=== PATIENT | male | born 1965 | race Caucasian/White ===

== ENCOUNTER → 2020-07-27 11:43 | Outpatient (CLI) | payer MEDICAID, SELFPAY ==
[2020-07-27 14:28] LABS: Hemoglobin A1C 6.8 % (4.0-6.0)
[2020-07-27 14:43] LABS: Chloride 98 mmol/L (98-107); Sodium 138 mmol/L (136-145)
[2020-07-27 14:45] LABS: Alanine Aminotransferase 15 U/L (12-78); Albumin Level 4.2 g/dl (3.5-5.0); Albumin/Globulin Ratio 1.4 (1.1-1.8); Alkaline Phosphatase 112 U/L (38-126); Aspartate Amino Transferase 29 U/L (17-59); Blood Urea Nitrogen 17 mg/dl (9-20); Carbon Dioxide 33 mmol/L (22.0-30.0); Estimated Glomerular Filt Rate 69 ml/min (>60); GFR (African American) 84 ML/MIN (>60); Globulin 2.9 g/dL (1.3-3.2); Total Protein,Serum 7.1 g/dl (6.3-8.2)
[2020-07-27 14:45] LABS: Phosphorous 3.9 mg/dl (2.5-4.5); Uric Acid 6.7 mg/dl (3.5-8.5)
[2020-07-27 14:46] LABS: Calcium 9.5 mg/dl (8.4-10.2); Chol/HDL Ratio 2.9 (1-3.5); Cholesterol 117 mg/dl (140-200); Glucose 130 mg/dl (74-100); HDL Cholesterol 40 mg/dl (40-60); Triglycerides 94 mg/dl (30-150); VLDL Cholesterol 19 mg/dL (0-40)
[2020-07-27 14:58] LABS: Direct LDL Cholesterol 59.65 mg/dL (100-129)
[2020-07-27 15:04] LABS: 25-OH Vitamin D, Total 35.6 ng/mL (30-100)
[2020-07-27 15:20] LABS: Thyroid Stimulating Hormone 0.65 uIU/mL (0.465-4.68)
== END ==
PROVIDERS: Internal Medicine Nephrology; PCP Nurse Practitioner Family; Visit Provider Internal Medicine Endocrinology, Diabetes & Metabolism
DX: E07.9 Disorder of thyroid, unspecified (principal); N17.9 Acute kidney failure, unspecified; N18.30 Chronic kidney disease, stage 3 unspecified; I10 Essential (primary) hypertension; E11.65 Type 2 diabetes mellitus with hyperglycemia; E55.9 Vitamin D deficiency, unspecified; E78.5 Hyperlipidemia, unspecified
CPT/HCPCS: 36415; 80053; 80061; 82306; 83036; 83970; 84100; 84443; 84550

== ENCOUNTER → 2020-08-10 11:03 | Outpatient (CLI) | payer MEDICAID, SELFPAY ==
[2020-08-10 11:12] LABS: Microscopic, Urine URINE MICROSCOPIC (MICROSCOPIC)
[2020-08-10 13:44] LABS: Appearance,Urine CLEAR (Clear); Bilirubin,Urine Negative (Negative); Blood, Urine Negative (Negative); Color,Urine YELLOW (Yellow); Glucose,Urine (UA) Negative (Negative); Ketones,Urine Negative (Negative); Leukocyte Esterase,Urine Negative (Negative); Nitrate,Urine Negative (Negative); Protein,Urine Negative (Negative); Specific Gravity, Urine 1.025 (1.005-1.030); Urobilinogen,Urine 0.2 EU/dl (0.2)
[2020-08-10 14:26] LABS: Microalbumin < 6.000 mg/L (0-16.7)
[2020-08-10 14:34] LABS: Creatinine,Urine Random 171 mg/dL (Not Estab.)
[2020-08-10 15:08] LABS: Bacteria,Urine Trace /lpf; Fatty Casts,Urine Occasional #/lpf (0); Squamous Epithelial Cell,Urine Occasional #/hpf (0-5)
== END ==
PROVIDERS: Internal Medicine Nephrology; PCP Nurse Practitioner Family; Visit Provider Internal Medicine Endocrinology, Diabetes & Metabolism
DX: N17.9 Acute kidney failure, unspecified (principal); N18.30 Chronic kidney disease, stage 3 unspecified; E78.5 Hyperlipidemia, unspecified; E07.9 Disorder of thyroid, unspecified; E11.65 Type 2 diabetes mellitus with hyperglycemia; E55.9 Vitamin D deficiency, unspecified; I12.9 Hypertensive chronic kidney disease with stage 1 through stage 4 chronic kidney disease, or unspecified chronic kidney disease
CPT/HCPCS: 81001; 82043; 82570

== ENCOUNTER 2021-01-10 13:00 | Outpatient (RCR) | payer MEDICAID, SELFPAY | END 2021-01-26 13:39 | disposition home or self-care (01) | LOC: PT.CARL 13:00 | PROVIDERS: PCP Nurse Practitioner Family; Visit Provider Nurse Practitioner | DX: M25.552 Pain in left hip (principal) | CPT/HCPCS: 97110; 97140; 97163 ==

== ENCOUNTER 2021-02-28 15:00 | Outpatient (RCR) | payer MEDICAID, SELFPAY | END 2021-02-28 16:00 | disposition home or self-care (01) | LOC: PT.CARL 15:00 | PROVIDERS: PCP Nurse Practitioner Family; Visit Provider Nurse Practitioner | DX: M25.562 Pain in left knee (principal) | CPT/HCPCS: 97010; 97014; 97110; 97163; G0283 ==

== ENCOUNTER → 2021-04-13 11:00 | Outpatient (CLI) | payer MEDICAID, SELFPAY ==
[2021-04-13 11:04] LABS: Microscopic, Urine URINE MICROSCOPIC (MICROSCOPIC)
[2021-04-13 13:11] LABS: Basophils # 0.1 K/mm3 (0-0.2); Basophils % 1.1 % (0.1-2.0); Eosinophils # 0.8 K/mm3 (0.0-0.4); Eosinophils % 8.9 % (0.1-12.0); Hematocrit 44.1 % (42.0-52.0); Hemoglobin 14.4 g/dL (14.1-18.0); Lymphocytes # 2.2 K/mm3 (0.7-4.5); Lymphocytes % 24.2 % (10-50); Mean Corpuscular HGB Conc 32.7 g/dL (31.8-35.4); Mean Corpuscular Hemoglobin 29.1 pg (27.0-31.2); Mean Corpuscular Volume 88.8 fl (80-94); Mean Platelet Volume 8.8 fl (7.4-10.4); Monocytes # 0.4 K/mm3 (0.1-1.0); Monocytes % 4.3 % (1.7-9.3); Neutrophils # 5.6 K/mm3 (1.8-7.8); Neutrophils % 61.5 % (37.0-80.0); Platelet Count 336 K/mm3 (142-424); Red Blood Count 4.96 M/mm3 (4.60-6.20); Red Cell Distribution Width 13.8 % (11.5-17.5); White Blood Count 9.1 K/mm3 (4.8-10.8)
[2021-04-13 13:17] LABS: Alanine Aminotransferase 14 U/L (12-78); Albumin Level 3.8 g/dl (3.5-5.0); Albumin/Globulin Ratio 1.5 (1.1-1.8); Alkaline Phosphatase 102 U/L (38-126); Anion Gap 13.8 mEq/L (5-15); Aspartate Amino Transferase 26 U/L (17-59); Bilirubin,Total 0.6 mg/dl (0.2-1.3); Blood Urea Nitrogen 23 mg/dl (9-20); Calcium 8.9 mg/dl (8.4-10.2); Carbon Dioxide 31 mmol/L (22.0-30.0); Chloride 99 mmol/L (98-107); Estimated Glomerular Filt Rate 69 ml/min (>60); GFR (African American) 83 ML/MIN (>60); Globulin 2.5 g/dL (1.3-3.2); Glucose 128 mg/dl (74-100); Potassium 3.8 mmoL/L (3.5-5.1); Sodium 140 mmol/L (136-145); Total Protein,Serum 6.3 g/dl (6.3-8.2)
[2021-04-13 13:34] LABS: 25-OH Vitamin D, Total 37.6 ng/mL (30-100)
[2021-04-13 13:41] LABS: Hemoglobin A1C 6.7 % (4.0-6.0)
[2021-04-13 13:55] LABS: Appearance,Urine CLEAR (Clear); Bilirubin,Urine Negative (Negative); Blood, Urine Negative (Negative); Color,Urine YELLOW (Yellow); Glucose,Urine (UA) Negative (Negative); Ketones,Urine Negative (Negative); Leukocyte Esterase,Urine Negative (Negative); Nitrate,Urine Negative (Negative); Protein,Urine Negative (Negative); Urobilinogen,Urine 0.2 EU/dl (0.2)
[2021-04-13 14:09] LABS: Creatinine,Urine Random 68 mg/dL (Not Estab.)
== END ==
PROVIDERS: Visit Provider Internal Medicine Nephrology
DX: I12.9 Hypertensive chronic kidney disease with stage 1 through stage 4 chronic kidney disease, or unspecified chronic kidney disease (principal); N18.2 Chronic kidney disease, stage 2 (mild); E11.22 Type 2 diabetes mellitus with diabetic chronic kidney disease
CPT/HCPCS: 36415; 80053; 81001; 82306; 82570; 83036; 83970; 84155; 85025

== ENCOUNTER → 2021-05-25 15:33 | Outpatient (CLI) | payer MEDICAID, SELFPAY ==
--- NOTE | 2021-05-25 15:36 | MR_ITS ---
PROCEDURE: MR LUMBAR SPINE WO CON CLINICAL INDICATION: LOW BACK PAIN COMPARISON: No exams were available for comparison TECHNIQUE: Standard multiplanar multiecho sequences are performed without contrast. 3-D MIP and myelographic images are also rendered and reviewed FINDINGS: There is normal alignment. T11-T12: Degenerative disc disease. T12-L1: Unremarkable. L1-L2: Mild degenerative disc disease. Facet and ligamentum hypertrophic change with mild bilateral lateral recess narrowing. L2-L3: There is degenerative disc disease with bulging disc along with facet and ligamentum hypertrophy. There is endplate irregularity with type 1 endplate changes. There is mild impingement upon the left L3 nerve root from the facet and ligamentum hypertrophy and mild bulging disc. Mild bilateral lateral recess narrowing. L3-L4: Degenerative disc disease with type 1 endplate changes with endplate irregularity with mild bulging disc. Prominent facet and ligamentum hypertrophy with moderate to severe bilateral lateral recess narrowing and bilateral foraminal narrowing. There is transverse narrowing of the canal at 7 mm. The lateral recess narrowing is slightly greater on the left. L4-5: Mild degenerative disc disease with mild bulging disc. Prominent facet and ligamentum hypertrophy with bilateral lateral recess narrowing and bilateral foraminal narrowing. There is transverse narrowing of the canal. L5-S1: Facet and ligamentum hypertrophic change with mild bilateral foraminal narrowing. Along the left aspect of the L5 vertebral body anteriorly there is a 2.7 x 1.5 cm area of increased T2 signal. This is hypointense on T1. This lesion is well-circumscribed without bony expansion. The T2 images suggest some tiny areas of decreased signal. This may represent a lipid poor hemangioma. No extruded herniated disc evident. IMPRESSION: Multilevel lumbar spondylosis with degenerative disc disease along with facet and ligamentum hypertrophy resulting in varying degrees of lateral recess and foraminal narrowing. Please see above for detailed description at each level. No extruded herniated disc. There is transverse narrowing of the canal at L3-L4 and L4-L5. T2 hyperintense lesion at the L5 vertebral body. This could represent a lipid poor hemangioma. Metastatic lesion would be included in the differential diagnosis. If there are old exams at another institution, with suggest submitted for comparison. If there are no old exams then CT scan of the lumbar spine may provide further evaluation to determine if there is internal bony trabeculation which would lead 1 more to suspect a hemangioma. Dictated by: Leonidas Glaser MD 05/27/2021 08:56 Leonidas Glaser MD in [place] 05/27/2021 08:56
== END ==
PROVIDERS: PCP Nurse Practitioner Family; Visit Provider Nurse Practitioner
DX: M54.50 Low back pain, unspecified (principal)
CPT/HCPCS: 72148; 76376

== ENCOUNTER 2021-07-11 14:30 | Outpatient (RCR) | payer MEDICAID, SELFPAY | END 2021-07-18 08:49 | disposition home or self-care (01) | LOC: PT.CARL 14:30 | PROVIDERS: PCP Nurse Practitioner Family; Visit Provider Nurse Practitioner | DX: M54.50 Low back pain, unspecified (principal) | CPT/HCPCS: 97110; 97140; 97163 ==

== ENCOUNTER 2023-01-09 16:00 | Outpatient (RCR) | payer MEDICAID, SELFPAY | END 2023-02-14 14:50 | disposition home or self-care (01) | LOC: PT 16:00 | PROVIDERS: PCP Nurse Practitioner Family; Visit Provider Orthopaedic Surgery | DX: M16.12 Unilateral primary osteoarthritis, left hip (principal) | CPT/HCPCS: 97010; 97110; 97163; 97164; 97530 ==

== ENCOUNTER 2023-10-15 17:24 | Outpatient (CLI) | payer MEDICAID, SELFPAY ==
--- NOTE | 2023-10-15 17:30 | MR_ITS ---
PROCEDURE INFORMATION: Exam: MR Right Lower Extremity Joint Without Contrast; Hip Exam date and time: 10/15/2023 5:31 PM Age: 58 years old Clinical indication: Pain; Hip; Right; Additional info: Pain in right hip TECHNIQUE: Imaging protocol: Magnetic resonance imaging of the right lower extremity joint without contrast. Exam focused on the hip. Sequences: Coronal and axial large field of view sequences include the pelvis and both the left and right hips. Sagittal sequences are focused on the symptomatic hip. COMPARISON: MR LUMBAR SPINE WO CON 05/25/2021 3:51 PM FINDINGS: Limitations: Body habitus. Motion artifact. Contralateral hip hardware produces susceptibility artifact that obscures and distorts the adjacent tissues, as well as disrupting the regional fat suppression. Bones/joints: There is severe primary osteoarthritis of the right hip joint. There is no acute fracture or dislocation. No aggressive bone lesions are present. A moderate joint effusion involves the right hip. A presumed hemangioma in L5 is unchanged compared with 2020. Labrum: The hip labrum cannot be assessed but labral tearing would be common in the setting of severe osteoarthritis. TENDONS: Tendons of iliopsoas group: Unremarkable. No evidence of tear. Tendons of medial compartment of thigh: Unremarkable. No evidence of tear. Tendons of lateral rotators of hip: Unremarkable. No evidence of tear. Tendons of gluteal group: Unremarkable. No evidence of tear. Soft tissues: No suspicious mass. Other findings: The testicles are located in the inguinal canals. IMPRESSION: 1. Severe primary osteoarthritis of the right hip joint. 2. Testicles located in the inguinal canals. 3. Moderate right hip joint effusion.
== END 2023-10-15 23:59 ==
LOC: RAD 17:24
PROVIDERS: PCP Nurse Practitioner; Visit Provider Nurse Practitioner
DX: M25.551 Pain in right hip (principal)
CPT/HCPCS: 73721

== ENCOUNTER 2024-01-29 13:00 | Outpatient (RCR) | payer MEDICAID, SELFPAY | END 2024-02-10 10:26 | disposition home or self-care (01) | LOC: PT 13:00 | PROVIDERS: Visit Provider Orthopaedic Surgery | DX: M16.11 Unilateral primary osteoarthritis, right hip (principal) | CPT/HCPCS: 97010; 97110; 97163; 97530 ==